=== PATIENT | male | born 1960 | race Caucasian/White ===

== ENCOUNTER 2021-06-24 20:59 | Emergency (ER) | payer BC ==
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
== END 2021-06-24 22:10 | disposition home or self-care (01) ==
LOC: JP.ED 20:59
DX: L03.113 Cellulitis of right upper limb (principal)
CPT/HCPCS: 99283